=== PATIENT | male | born 1940 | race Caucasian/White ===

== ENCOUNTER → 2017-01-30 | Outpatient (CLI) | payer MEDICARE, OTHER ==
[~2017-01-30] MED LIST: GADOBUTROL 7.5 MMOL/7.5 ML VIAL IV ONE
--- NOTE | 2017-01-30 13:14 | RAD ---
INDICATION: Gait instability. TECHNIQUE: Sagittal T1, sagittal T2, sagittal STIR, sagittal postcontrast, axial T1, axial T2, axial T2 gradient, and axial postcontrast sequences are provided. 7.5 mL of intravenous Gadavist was administered without complication. No comparison is available. FINDINGS: There is no malalignment. There is no worrisome marrow lesion. There is endplate edema which appears degenerative at C6-C7. There is mild narrowing of the interspace at C5-C6 and C6-C7. There is no cord signal abnormality. The cervicomedullary junction is unremarkable. There is no pathologic enhancement. Degenerative findings by individual level are as follows: C2-C3: There is mild left greater than right facet hypertrophy with mild left foraminal narrowing. C3-C4: There is a disc osteophyte complex and uncinate process spurring. There is facet hypertrophy which is greater on the right. There is effacement of the ventral CSF column with midline AP diameter of the thecal sac minimally narrowed to 10 mm. Foraminal narrowing bilaterally is noted, [id number] on the left and mild on the right. C4-C5: There is a disc osteophyte complex with tiny focal central protrusion. There is uncinate process spurring. There is buckling of ligamentum flavum and facet hypertrophy. Midline AP diameter of the thecal sac is narrowed to 7 mm. There is cord flattening but no cord hyperintensity. Foraminal narrowing is mild. C5-C6: There is a disc osteophyte complex and uncinate process spurring. There is mild cord flattening. Midline AP diameter of the thecal sac is narrowed to 8 mm. Foraminal narrowing bilaterally appears high-grade. C6-C7: Disc osteophyte complex and uncinate process spurring are noted. There is buckling of ligamentum flavum. There is mild cord flattening, midline AP diameter of the thecal sac is narrowed to 10 mm. Foraminal narrowing bilaterally appears moderate. C7-T1: There is facet hypertrophy with [id number] foraminal narrowing. There is no pathologic enhancement. IMPRESSION: Multilevel degenerative changes with several levels of canal stenosis, greatest at C4-C5 and C5-C6. There are also several levels of high-grade foraminal narrowing. Electronically signed by: Bandar Pretty MD (01/30/2017 1:10 PM) [facility]
[2017-01-30 13:30] LABS: ALBUMIN 3.4 g/dL (3.4-5.0); ALBUMIN/GLOBULIN RATIO 0.9 (1.0-1.7); CREATININE 0.9 mg/dL (0.7-1.3); GFR 82.3; POTASSIUM 4.1 mmol/L (3.5-5.1); TOTAL BILIRUBIN 0.3 mg/dL (0.2-1.0)
== END | disposition home or self-care (01) ==
LOC: MRI 10:55
PROVIDERS: ATTEND Psychiatry & Neurology Neurology
DX: M48.02 Spinal stenosis, cervical region (principal); R26.81 Unsteadiness on feet
CPT/HCPCS: 36415; 72156; 80053; 82306; 82550; 82607; 84443; A9585

== ENCOUNTER → 2017-03-27 | Outpatient (CLI) | payer MEDICARE, OTHER ==
--- NOTE | 2017-03-27 13:53 | RAD ---
MRI of the lumbar spine without contrast 03/27/2017 CLINICAL HISTORY: Gait disorder. TECHNIQUE: Unenhanced T1-weighted and T2-weighted sagittal and axial and inversion recovery sagittal images of the lumbar spine were obtained. FINDINGS: Minimal S-shaped curvature of the thoracolumbar spine is seen. Degenerative signal changes are seen involving all of the disks of the lumbar spine. Degenerative signal changes are seen within the marrow surrounding these discs. A 2 cm hemangioma is seen involving the L2 vertebral body. A 8 mm hemangioma is seen involving the posterior aspect of the L3 vertebral body. The conus medullaris is normal morphology, position, and signal characteristics. At the L1-2 disc space there is a mild generalized disc bulge. Degenerative changes are seen involving the facet joints bilaterally. There is mild ligamentum flavum hypertrophy bilaterally. These findings when combined do not result in significant central spinal canal or neural foraminal stenosis. At the L2-3 disc space there is a mild generalized disc bulge. This is eccentric to the left. Degenerative changes are seen involving the facet joints bilaterally. There is mild ligamentum flavum hypertrophy bilaterally. These findings do not result in significant central spinal canal or neural foraminal stenosis. The L3-4 disc space there is a mild generalized disc bulge. Degenerative changes are seen involving the facet joints, left greater than right. There is mild ligament flavum hypertrophy bilaterally. Mild facet joint effusions are seen. There is prominence of the posterior epidural fat. These findings when combined result in mild central spinal canal stenosis. Mild left neural foraminal stenosis is seen. The right neural foramen is patent. At the L4-5 disc space there is a mild generalized disc bulge. Degenerative changes are seen involving the facet joints bilaterally. There is mild ligamentum flavum hypertrophy bilaterally. These findings when combined do not result in significant central spinal canal stenosis. Mild bilateral neural foraminal stenosis is seen. At the L5-S1 disc space there is a minimal generalized disc bulge. Degenerative changes are seen involving the facet joints bilaterally. These findings do not result in significant central spinal canal or neural foraminal stenosis. IMPRESSION: The changes of degenerative disc disease are seen throughout the lumbar spine. These findings result in mild central spinal canal stenosis at L3-4. Mild left neural foraminal stenosis is seen at L3-4. Mild bilateral neural foraminal stenosis is seen at L4-5. Electronically signed by: Elvis Key MD (03/27/2017 1:50 PM) [id number]
== END | disposition home or self-care (01) ==
LOC: MRI 10:12
PROVIDERS: ATTEND Neurological Surgery
DX: M51.36 Other intervertebral disc degeneration, lumbar region (principal); M48.061 Spinal stenosis, lumbar region without neurogenic claudication; R26.9 Unspecified abnormalities of gait and mobility
CPT/HCPCS: 72148